=== PATIENT | male | born 2000 | race Caucasian/White ===

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

== ENCOUNTER 2020-03-01 17:11 | Emergency (ER) | payer BC, SELFPAY ==
[2020-03-01 17:12] VITALS: BP 149/68; PULSE 92; RESP 16; TEMP 37.3; O2SAT 98; BMI 32.5
--- NOTE | 2020-03-01 17:19 | HMH.EDUTC ---
[facility] [place] Clinical Impression: Puncture wound of left index finger, Need for Tdap vaccination Disposition: Home, Self-Care Condition on Discharge: Good Instructions: Tetanus, Diphtheria, and Pertussis Vaccine, DI for Puncture Wound Additional Instructions: Keep the affected area clean and dry. Follow up with your regular doctor. Take the antibiotics as directed and apply the topical antibiotics as directed. Watch the site for signs of infection, such as redness, swelling, drainage, etc. GO TO THE ER FOR ANY WORSENING SYMPTOMS Prescriptions: Mupirocin [Bactroban 2% Ointment 22gm tube] 1 applicatio TP TID 7 Days #1 tube Transmission Status: Received by [facility] cephALEXin [Keflex 500mg Cap] 500 mg PO Q6H 10 Days #40 cap Transmission Status: Received by [facility] Referrals: PCP,No [Primary Care Provider] - Time of Disposition: 18:10 Medical Decision Making - Medical Records Medical records reviewed: No: I reviewed the patient's medical records. - Zohaib Inquiry Pt receiving controlled substance: No Vital Signs: 03/01/20 17:12 03/01/20 18:20 Temperature 99.1 F 99.1 F Temperature Source Oral Oral Pulse Rate 92 H Pulse Rate [Right] 92 H Respiratory Rate 16 16 Blood Pressure 149/68 H Blood Pressure [Right Arm] 149/68 H Blood Pressure Mean [Right Arm] 95 02 Sat by Pulse Oximetry 98 Orders (Tests/Meds): ED MEDICATIONS Discontinued Medications Generic Name Dose Route Start Last Admin Trade Name Freq PRN Reason Stop Dose Admin Tetanus/Reduced Diphtheria/Acell Pertussis 0.5 ml 03/01/20 17:44 03/01/20 18:01 Tet/Diphth/Pert-Adult 0.5ml Syringe IM 03/01/20 17:45 0.5 ml .ONCE ONE Administration [facility] [place] - General Stated complaint: Left index finger Time Seen by Provider: 03/01/20 17:19 - History of Present Illness Provider Complaint: He states that 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 His tetanus immunization is not up to date. - Related Data Previous Rx's Medication Instructions Recorded amoxicillin 500 mg capsule 500 mg PO Q12H 10 Days #20 cap 04/27/19 Mupirocin [Bactroban 2% Ointment 1 applicatio TP TID 7 Days #1 tube 03/01/20 22gm tube] cephALEXin [Keflex 500mg Cap] 500 mg PO Q6H 10 Days #40 cap 03/01/20 Allergies Allergy/AdvReac Type Severity Reaction Status Date / Time nut allergy Allergy Mild Uncoded 03/01/20 17:29 [facility] History - Hepatitis A Screen Attestation statement:: This patient has been screened for Hepatitis A risk factors. I have reviewed the patient's past medical history: Yes Laterality Cases: Bilateral: Tonsillectomy Other Surgeries: Yes: No Previous Surgery - Social History Smoking Status: Never smoker Alcohol Intake: never Occupational Status: student, employed Housing: house Household Members: family Family Hx:: No significant family history ROS Obtained: Yes All systems reviewed & no additional complaints - Constitutional Constitutional: Denies chills, Denies fever(s) - Musculoskeletal Musculoskeletal: Reports as per HPI - Integumentary/Breasts Skin/Breast: Reports as per HPI - Neurologic Neurologic: Denies tingling/numbness/burning sensations Physical Exam - General General appearance: alert, in no apparent distress - Head Head exam: atraumatic, normocephalic, normal inspection - Eye Eye exam: Present: normal appearance, PERRL, EOMI - ENT ENT exam: Present: normal exam, normal oropharynx, mucous membranes moist, TM's normal bilaterally, normal external ear exam - Neck Neck exam: Present: normal inspection, full ROM, trachea midline. Absent: meningismus, lymphadenopathy - Chest Chest inspection: Present: normal inspection, symmetric chest wall rise. Absent: tenderness - Respiratory Respiratory exam: Present: normal lung sounds bilatera
[2020-03-01 18:20] VITALS: BP 149/68; PULSE 92; RESP 16; TEMP 37.3; O2SAT 98
== END 2020-03-01 18:21 | disposition home or self-care (01) ==
PROVIDERS: Emergency Provider Nurse Practitioner Family
DX: S61.231A Puncture wound without foreign body of left index finger without damage to nail, initial encounter (principal); W29.8XXA Contact with other powered hand tools and household machinery, initial encounter; Y92.019 Unspecified place in single-family (private) house as the place of occurrence of the external cause; Z23 Encounter for immunization
CPT/HCPCS: 90715; 99202; G0463

== ENCOUNTER 2021-07-22 17:28 | Emergency (ER) | payer BC, SELFPAY ==
--- NOTE | 2021-07-22 18:43 | HMH.EDUTC ---
[facility] [place] Disposition Clinical Impression: Strep throat Disposition: Home, Self-Care Condition on Discharge: Good Instructions: Strep Throat, DI for Strep Throat Additional Instructions: Drink plenty of fluids. Take tylenol or ibuprofen for pain or fever. Take the medications as directed. Follow up with your regular doctor. GO TO THE ER FOR ANY WORSENING SYMPTOMS Throw your tooth brush away and get a new one. Prescriptions: Ondansetron [Zofran 4mg ODT] 4 mg PO Q8HP PRN #20 tab PRN Reason: Nausea Transmission Status: Received by [facility] Amoxicillin/Potassium Clav [Amox-Clav 875-125 mg Tablet] 1 tab PO BID #20 tab Transmission Status: Received by [facility] methylPREDNISolone [Medrol] 4 mg PO DIRECTED 6 Days #21 packet Transmission Status: Received by [facility] Referrals: Gloria Alvarenga APRN [Primary Care Provider] - Forms: Work/School Release Time of Disposition: 19:07 Medical Decision Making - Medical Records Medical records reviewed: No: I reviewed the patient's medical records. - Zohaib Inquiry Pt receiving controlled substance: No Vital Signs: 07/22/21 19:01 07/22/21 19:15 Temperature 98.8 F 98.8 F Temperature Source Oral Pulse Rate 75 Pulse Rate [Left Radial] 75 Respiratory Rate 19 19 Blood Pressure 146/68 H Blood Pressure [Right Arm] 146/68 H Blood Pressure Mean [Right Arm] 94 02 Sat by Pulse Oximetry 97 - Lab Data Lab results reviewed: Yes: I reviewed the patient's lab results. Lab Results 07/22/21 18:43: Group A Strep Rapid Negative Orders (Tests/Meds): ORDERS Category Date Time Status Strep Screen Confirmation Stat Micro 07/22/21 18:43 Received [facility] [place] HPI - General Stated complaint: sore throat Time Seen by Provider: 07/22/21 18:43 - History of Present Illness Provider Complaint: He c/o sore throat for the past 2 days. He has had a low grade fever and chills also. He denies any cough or congestion. - Related Data Previous Rx's Medication Instructions Recorded amoxicillin 500 mg capsule 500 mg PO Q12H 10 Days #20 cap 04/27/19 Mupirocin [Bactroban 2% Ointment 1 applicatio TP TID 7 Days #1 tube 03/01/20 22gm tube] cephALEXin [Keflex 500mg Cap] 500 mg PO Q6H 10 Days #40 cap 03/01/20 Amoxicillin/Potassium Clav 1 tab PO BID #20 tab 07/22/21 [Amox-Clav 875-125 mg Tablet] Ondansetron [Zofran 4mg ODT] 4 mg PO Q8HP PRN #20 tab 07/22/21 methylPREDNISolone [Medrol] 4 mg PO DIRECTED 6 Days #21 07/22/21 packet Allergies Allergy/AdvReac Type Severity Reaction Status Date / Time nut allergy Allergy Mild Uncoded 03/01/20 17:29 [facility] History - Hepatitis A Screen Attestation statement:: This patient has been screened for Hepatitis A risk factors. I have reviewed the patient's past medical history: Yes Laterality Cases: Bilateral: Tonsillectomy Other Surgeries: Yes: No Previous Surgery - Social History Smoking Status: Never smoker Alcohol Intake: never Occupational Status: student, employed Housing: house Household Members: family Family Hx:: No significant family history ROS Obtained: Yes All systems reviewed & no additional complaints - Constitutional Constitutional: Reports as per HPI - Eyes Eyes: Denies eye discharge - ENT Ears, Nose, Mouth, and Throat: Reports as per HPI - Cardiovascular Cardiovascular: Denies chest pain - Respiratory Respiratory: Denies chest congestion, Reports cough Physical Exam - General General appearance: alert, in no apparent distress - Head Head exam: atraumatic, normocephalic, normal inspection - Eye Eye exam: Present: normal appearance, PERRL, EOMI - ENT ENT exam: Present: mucous membranes moist, normal external ear exam - Expanded ENT Exam TM/Canal exam: Bilateral TM: erythema, bulging Nose exam: Absent: sinus tenderness Nasal speculum exam: Bilateral: normal Mouth exam: Present: normal external inspecti
[2021-07-22 19:01] VITALS: BP 146/68; PULSE 75; RESP 19; TEMP 37.1; O2SAT 97; BMI 35.2
[2021-07-22 19:12] LABS: Strep Scrn Group A (Rapid) Negative (Negative)
[2021-07-22 19:15] VITALS: BP 146/68; PULSE 75; RESP 19; TEMP 37.1
== END 2021-07-22 19:16 | disposition home or self-care (01) ==
PROVIDERS: Emergency Provider Nurse Practitioner Family; PCP Nurse Practitioner Family
DX: J02.9 Acute pharyngitis, unspecified (principal); Z79.52 Long term (current) use of systemic steroids; Z91.018 Allergy to other foods
CPT/HCPCS: 87430; 99213; G0463

== ENCOUNTER 2021-09-21 07:11 | Emergency (ER) | payer BC, SELFPAY ==
[2021-09-21 07:12] VITALS: BP 132/86; PULSE 83; RESP 16; TEMP 36.9; O2SAT 97; BMI 35.2
--- NOTE | 2021-09-21 08:01 | HMH.EDBACK ---
ED Disposition Clinical Impression: Pyelonephritis, Renal lithiasis Disposition: Home, Self-Care Condition on Discharge: Good Instructions: Kidney Stones -- Adult Additional Instructions: Please return with any new or worsening symptoms. Prescriptions: Ketorolac Tromethamine [Toradol 10mg tablet] 10 mg PO Q6HP PRN #30 tab MDD 40mg/day PRN Reason: Moderate Pain Transmission Status: Received by [facility] Tamsulosin HCl [Flomax 0.4mg capsule] 0.4 mg PO HS #14 cap Transmission Status: Received by [facility] Cefdinir [Omnicef 300mg Capsule] 300 mg PO BID 14 Days #28 cap Transmission Status: Received by [facility] Promethazine HCl [Phenergan 25mg tab] 25 mg PO Q6H PRN #30 tab PRN Reason: Nausea And Vomiting Transmission Status: Received by [facility] Referrals: Juancho Perdomo MD [Primary Care Provider] - - Critical Care Critical Care Time: No Attestation: On 09/21/21, the high probability of a clinically significant, sudden or life threatening deterioration of the following system(s) required my full and direct attention, intervention and personal management. The time I documented below is in addition to time spent performing reported procedures but includes the following listed in this critical care notation. Medical Decision Making - Zohaib Inquiry Pt receiving controlled substance: Yes Zohaib was queried for this patient: No Risks and benefits of using a controlled substance: were discussed with pt by me Vital Signs: 09/21/21 07:12 09/21/21 08:49 09/21/21 11:09 Temperature 98.5 F 98.7 F Temperature Source Oral Pulse Rate 103 H 74 Pulse Rate [Right Radial] 83 Respiratory Rate 16 16 Blood Pressure 138/86 128/78 Blood Pressure [Right Arm] 132/86 Blood Pressure Mean [Right Arm] 101 Blood Pressure Source [Right Arm] Automatic Cuff Blood Pressure Position [Right Arm] Sitting 02 Sat by Pulse Oximetry 97 95 Oxygen Delivery Method Room Air - Lab Data Lab Results 09/21/21 07:35: WBC 9.9, RBC 5.37, Hgb 16.0, Hct 48.6, MCV 90.4, MCH 29.9, MCHC 33.0, RDW 14.4, Plt Count 399, MPV 11.4 H, Neut % (Auto) 80.7 H, Lymph % (Auto) 15.1, Randolph % (Auto) 3.2, Eos % (Auto) 1.0, Baso % (Auto) 2.9 H, Neut # (Auto) 8.0 H, Lymph # (Auto) 1.5, Randolph # (Auto) 0.3, Eos # (Auto) 0.1, Baso # (Auto) 0.3 H, ESR 3 09/21/21 07:35: Sodium 141, Potassium 4.0, Chloride 104, Carbon Dioxide 25, Anion Gap 16.0 H, BUN 8 L, Creatinine 0.70, Estimated Creat Clear 281, Estimated GFR 144, Est GFR ( Amer) 174, Glucose 148 H, Calcium 9.2, Total Bilirubin 0.3, AST 45, ALT 54, Alkaline Phosphatase 110, C-Reactive Protein 10.8 H, Total Protein 7.9, Albumin 4.6, Globulin 3.3 H, Albumin/Globulin Ratio 1.4, Lipase 24 09/21/21 07:35: SARS-CoV-2 (PCR) Not detected, Influenza A Untype (PCR) Not detected, Influenza Type B (PCR) Not detected 09/21/21 08:45: Urine Color Shoshana, Urine Appearance Turbid, Urine pH 5.0, Ur Specific [place] >= 1.030, Urine Protein 1+, Urine Glucose (UA) Negative, Urine Ketones Negative, Urine Blood 3+, Urine Nitrate Negative, Urine Bilirubin Negative, Urine Urobilinogen 0.2, Ur Leukocyte Esterase Negative, Urine RBC 20-50, Urine WBC 5-10, Ur Squamous Epith Cells 3-5, Amorphous Sediment 2+, Urine Bacteria 2+, Urine Mucus Trace Result diagrams: 09/21/21 07:35 09/21/21 07:35 Orders (Tests/Meds): ED MEDICATIONS Discontinued Medications Generic Name Dose Route Start Last Admin Trade Name Freq PRN Reason Stop Dose Admin Cyclobenzaprine HCl 10 mg 09/21/21 08:00 09/21/21 08:14 Cyclobenzaprine 10mg Tablet PO 09/21/21 08:01 10 mg ONCE ONE Administration Sodium Chloride 1,000 mls @ 999 mls/hr 09/21/21 08:15 09/21/21 08:18 Sod Chlor 0.9% 1000ml Bag IV 09/21/21 09:15 999 mls/hr .Q1H1M WILY Administration Ceftriaxone Sodium 1 gm/ 50 mls @ 100 mls/hr 09/21/21 09:39 09/21/21 09:44 Sodium Chloride IV 09/21/21 10:08 100 mls/hr Q24H STA Ad
[2021-09-21 08:19] LABS: Basophils # 0.3 K/mm3 (0-0.2); Basophils % 2.9 % (0.1-2.0); Eosinophils # 0.1 K/mm3 (0.0-0.4); Hematocrit 48.6 % (42.0-52.0); Lymphocytes # 1.5 K/mm3 (0.7-4.5); Lymphocytes % 15.1 % (10-50); Mean Corpuscular Hemoglobin 29.9 pg (27.0-31.2); Mean Corpuscular Volume 90.4 fl (80-94); Mean Platelet Volume 11.4 fl (7.4-10.4); Monocytes # 0.3 K/mm3 (0.1-1.0); Monocytes % 3.2 % (1.7-9.3); Neutrophils % 80.7 % (37.0-80.0); Platelet Count 399 K/mm3 (142-424); Red Blood Count 5.37 M/mm3 (4.60-6.20); Red Cell Distribution Width 14.4 % (11.5-17.5); White Blood Count 9.9 K/mm3 (4.5-13.0)
[2021-09-21 08:22] LABS: Alanine Aminotransferase 54 U/L (12-78); Albumin Level 4.6 g/dl (3.5-5.0); Albumin/Globulin Ratio 1.4 (1.1-1.8); Alkaline Phosphatase 110 U/L (38-126); Aspartate Amino Transferase 45 U/L (17-59); Bilirubin,Total 0.3 mg/dl (0.2-1.3); Blood Urea Nitrogen 8 mg/dl (9-20); Calcium 9.2 mg/dl (8.4-10.2); Carbon Dioxide 25 mmol/L (22.0-30.0); Chloride 104 mmol/L (98-107); Creatinine Clearance Estimated 281 mL/min (50-200); Estimated Glomerular Filt Rate 144 ml/min (>60); GFR (African American) 174 ML/MIN (>60); Globulin 3.3 g/dL (1.3-3.2); Glucose 148 mg/dl (74-100); Lipase 24 U/L (23-300); Sodium 141 mmol/L (136-145); Total Protein,Serum 7.9 g/dl (6.3-8.2)
[2021-09-21 08:28] LABS: C-Reactive Protein 10.8 mg/L (0-4)
[2021-09-21 08:48] LABS: Microscopic, Urine URINE MICROSCOPIC (MICROSCOPIC)
[2021-09-21 08:49] VITALS: BP 138/86; PULSE 103; O2SAT 95
[2021-09-21 08:50] LABS: Coronavirus 19, PCR Not Detected (NotDetected); Influenza A, PCR Not Detected (NotDetected); Influenza B, PCR Not Detected (NotDetected)
[2021-09-21 08:53] LABS: Appearance,Urine TURBID (Clear); Bilirubin,Urine Negative (Negative); Blood, Urine 3+ (Negative); Color,Urine AMBER (Yellow); Glucose,Urine (UA) Negative (Negative); Ketones,Urine Negative (Negative); Leukocyte Esterase,Urine Negative (Negative); Nitrate,Urine Negative (Negative); Protein,Urine 1+ (Negative); Specific Gravity, Urine >= 1.030 (1.005-1.030); Urobilinogen,Urine 0.2 EU/dl (0.2)
--- NOTE | 2021-09-21 08:58 | CT_ITS ---
PROCEDURE INFORMATION: Exam: CT Abdomen And Pelvis Without Contrast Exam date and time: 09/21/2021 9:07 AM Age: 20 years old Clinical indication: Abdominal pain; Flank; Right lower quadrant (rlq); Additional info: Back pain, concern for nephrolitiasis TECHNIQUE: Imaging protocol: Computed tomography of the abdomen and pelvis without contrast. Radiation optimization: All CT scans at this facility use at least one of these dose optimization techniques: automated exposure control; mA and/or kV adjustment per patient size (includes targeted exams where dose is matched to clinical indication); or iterative reconstruction. COMPARISON: No relevant prior studies available. FINDINGS: Liver: Normal. No mass. Gallbladder and bile ducts: Normal. No calcified stones. No ductal dilation. Pancreas: Normal. No ductal dilation. Spleen: Normal. No splenomegaly. Adrenal glands: Normal. No mass. Kidneys and ureters: 4 millimeter mid RIGHT ureteral calculus causes dilatation of the RIGHT ureter, and RIGHT collecting system. Axial image 64 Coronal image 37 The RIGHT kidney is edematous and there is RIGHT perirenal stranding. Stomach and bowel: Unremarkable. No obstruction. No mucosal thickening. Appendix: No evidence of appendicitis. Intraperitoneal space: Unremarkable. No free air. No significant fluid collection. Vasculature: Unremarkable. No abdominal aortic aneurysm. Lymph nodes: Unremarkable. No enlarged lymph nodes. Urinary bladder: Unremarkable as visualized. Reproductive: Unremarkable as visualized. 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 Soft tissues: Unremarkable. IMPRESSION: 1. 4 millimeter mid RIGHT ureteral calculus causes dilatation of the RIGHT ureter, and RIGHT collecting system. Axial image 64 Coronal image 37 The RIGHT kidney is edematous and there is RIGHT perirenal stranding. 2. 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
--- NOTE | 2021-09-21 09:00 | PC.NURSE ---
MD at bedside updating pt on test results and POC
[2021-09-21 09:11] LABS: Bacteria,Urine 2+ /lpf; RBC,Urine 20-50 #/hpf (0-3)
--- NOTE | 2021-09-21 09:11 | PC.NURSE ---
pt gone to rad
[2021-09-21 09:12] LABS: Amorphous Sediment,Urine 2+ /lpf; Mucus,Urine Trace /lpf
[2021-09-21 09:14] LABS: Erythrocyte Sedimentation Rate 3 mm/hr (0-15)
--- NOTE | 2021-09-21 10:24 | PC.NURSE ---
Called rad to inquire on status of CT reading. Was advised that they spoke with [facility] and was told That is not of high priority and stated that they are currently at a 92 minute turnaround time. notified.
--- NOTE | 2021-09-21 10:57 | PC.NURSE ---
speaking to pt and family regarding CT results
[2021-09-21 11:09] VITALS: BP 128/78; PULSE 74; RESP 16; TEMP 37.1; O2SAT 99
== END 2021-09-21 11:10 | disposition home or self-care (01) ==
PROVIDERS: Emergency Provider Student in an Organized Health Care Education/Training Program; PCP Family Medicine
DX: N20.2 Calculus of kidney with calculus of ureter (principal); N10 Acute pyelonephritis; Z87.442 Personal history of urinary calculi
CPT/HCPCS: 74150; 80053; 81001; 83690; 85025; 85651; 86140; 87086; 96365; 96367; 96375; 99285; C9803; J0696; J2405; U0003; U0005

== ENCOUNTER 2022-01-31 17:37 | Emergency (ER) | payer BC, SELFPAY ==
[2022-01-31 18:57] VITALS: BP 130/83; PULSE 121; RESP 19; TEMP 37.7; O2SAT 98; BMI 39.0
--- NOTE | 2022-01-31 18:59 | EXP.UTC ---
Discharge Plan Disposition Patient Disposition: Home, Self-Care Condition: Good Prescriptions Prescriptions: New oseltamivir [Tamiflu] 75 mg capsule 75 mg PO BID Qty: 10 0RF hevmkyyvigkjtni-dtraumuyi-HJ [Bromfed DM] 2-30-10 mg/5 mL Syrup 5 ml PO Q6H PRN (Reason: Cough) Qty: 240 0RF ondansetron 4 mg Tablet,Disintegrating 4 mg PO Q8H PRN (Reason: Nausea) Qty: 20 0RF Discontinued amoxicillin 500 mg capsule 500 mg PO Q12H 10 Days Qty: 20 0RF cephalexin 500 MG capsule 500 mg PO Q6H 10 Days Qty: 40 0RF mupirocin 22 GM ointment 1 applicatio TP TID 7 Days Qty: 1 0RF methylprednisolone 4 MG tablets,dose pack 4 mg PO DIRECTED 6 Days Qty: 21 0RF amoxicillin-pot clavulanate 1 EACH tablet 1 tab PO BID Qty: 20 0RF cefdinir 300 MG capsule 300 mg PO BID 14 Days Qty: 28 0RF No Action ondansetron 4 MG tablet,disintegrating 4 mg PO Q8HP PRN (Reason: Nausea) Qty: 20 0RF ketorolac 10 MG tablet 10 mg PO Q6HP MDD 40mg/day PRN (Reason: Moderate Pain) Qty: 30 0RF Rx Instructions: Therapy initiated with IV/IM dose tamsulosin 0.4 MG capsule 0.4 mg PO HS Qty: 14 0RF promethazine 25 MG tablet 25 mg PO Q6H PRN (Reason: Nausea And Vomiting) Qty: 30 0RF Referrals Follow up/Referrals: Gloria Alvarenga APRN [Primary Care Provider] - See instructions Activity Restrictions/Add. Instructions Additional Instructions/Restrictions: Drink plenty of fluids. Take tylenol or ibuprofen for pain or fever. Take the medications as directed. Follow up with your regular doctor. GO TO THE ER FOR ANY WORSENING SYMPTOMS Clinical Impressions Clinical Impression: Influenza A Stand Alone Forms Stand Alone Forms: Work/School Release Instructions Patient Instructions: DI for Influenza -- Adult, Oseltamivir Discharge ED Provider: Dutch Bravo [facility] General Stated complaint: chills,fever,Nausa Time Seen by Provider: 01/31/22 19:11 History of Present Illness Provider Complaint: He states that for the past 2 days he has had sore throat, chills, fever, and malaise. Related Data Previous Rx's Medication Instructions Recorded ondansetron 4 mg disintegrating 4 mg PO Q8HP PRN Nausea #20 tabs 07/22/21 tablet ketorolac 10 mg tablet 10 mg PO Q6HP PRN Moderate Pain 09/21/21 #30 tabs promethazine 25 mg tablet 25 mg PO Q6H PRN Nausea And 09/21/21 Vomiting #30 tabs tamsulosin 0.4 mg capsule 0.4 mg PO HS #14 caps 09/21/21 [id number]-lfdftrmgadtjfrj-WC 5 ml PO Q6H PRN Cough #240 mL 01/31/22 2 mg-30 mg-10 mg/5 mL oral syrup (Bromfed DM) ondansetron 4 mg disintegrating 4 mg PO Q8H PRN Nausea #20 tabs 01/31/22 tablet oseltamivir 75 mg capsule (Tamiflu) 75 mg PO BID #10 caps 01/31/22 Allergies Allergy/AdvReac Type Severity Reaction Status Date / Time nut allergy Allergy Mild Uncoded 03/01/20 17:29 [facility] Disclaimer: The information contained in this section may have been updated after the patient was seen, as this information can be updated by other users. Social History Smoking Status: Never smoker alcohol intake: never current occupational status: employed and student Travel in the last 8 weeks: Inside the [place] household members: family housing: house ROS Obtained: Yes All systems reviewed & no additional complaints except as documented Constitutional Constitutional: Reports chills and Reports fever(s) Eyes Eyes: Denies eye discharge ENT Ears, Nose, Mouth, and Throat: Reports as per HPI Cardiovascular Cardiovascular: Denies chest pain Respiratory Respiratory: Denies chest congestion and Reports cough Gastrointestinal Gastrointestingal: Reports nausea; Denies abdominal pain, constipation, cramping, diarrhea or vomiting Musculoskeletal Musculoskeletal: Denies arthralgias Integumentary/Breasts Skin/Breast: Denies rash Neurologic Neurologic: Denies pares
[2022-01-31 19:08] LABS: Adenovirus,PCR Not Detected (NotDetected); Bordetella Pertussis Not Detected (NotDetected); Chlamydophila Pneumoniae, PCR Not Detected (NotDetected); Coronavirus 19, PCR Not Detected (NotDetected); Coronavirus 229E Not Detected (NotDetected); Coronavirus NL63 Not Detected (NotDetected); Coronavirus OC43 Not Detected (NotDetected); Coronovirus HKU1,PCR Not Detected (NotDetected); Human Metapneumovirus Not Detected (NotDetected); Influenza A, PCR Not Detected (NotDetected); Influenza AH1, PCR Not Detected (NotDetected); Influenza AH3,PCR Not Detected (NotDetected); Influenza B, PCR Not Detected (NotDetected); Mycoplasma Pneumoniae, PCR Not Detected (NotDetected); Parainfluenza 1, PCR Not Detected (NotDetected); Parainfluenza 2, PCR Not Detected (NotDetected); Parainfluenza 3, PCR Not Detected (NotDetected); Parainfluenza 4, PCR Not Detected (NotDetected); Respiratory Syncytial Virus Not Detected (NotDetected); Rhinovirus/Enterovirus Not Detected (NotDetected)
[2022-01-31 20:01] VITALS: BP 130/83; PULSE 121; RESP 19; TEMP 37.7
[2022-02-01 02:48] LABS: Influenza AH1, 2009 Detected (NotDetected)
== END 2022-01-31 20:01 | disposition home or self-care (01) ==
PROVIDERS: Emergency Provider Nurse Practitioner Family; PCP Nurse Practitioner Family
DX: J10.1 Influenza due to other identified influenza virus with other respiratory manifestations (principal)
CPT/HCPCS: 87581; 87632; 87798; 99212; C9803; G0463; U0003; U0005